=== PATIENT | female | born 1990 | race Caucasian/White ===

== ENCOUNTER 2018-03-19 22:25 | Emergency (ER) | payer MEDICAID, OTHER ==
[2018-03-19] MEDS: IBUPROFEN 200 MG TAB PO (23:14)
[2018-03-19] MEDS: ACETAMINOPHEN 325 MG TAB PO (23:14)
== END 2018-03-19 23:43 | disposition home or self-care (01) ==
LOC: FTE 22:25
DX: J03.90 Acute tonsillitis, unspecified (principal)
CPT/HCPCS: 99283; Z7502